=== PATIENT | female | born 1970 | race Caucasian/White ===

== ENCOUNTER 2017-04-07 10:24 | Emergency (ER) | payer OTHER ==
[~2017-04-07] VITALS: Ht 167.6 cm; Wt 86.2 kg
--- NOTE | 2017-04-07 11:10 | ED GENERAL ADULT ---
History of Present Illness General Chief Complaint: Animal/Insect Bite Stated Complaint: CAT BITES BILATERAL HANDS Source: patient Exam Limitations: no limitations Vital Signs & Intake/Output Vital Signs & Intake/Output Vital Signs Date Time Temp Pulse Resp B/P B/P Pulse O2 O2 Flow FiO2 Mean Ox Delivery Rate 04/07 1028 96.6 87 16 154/90 99 Room Air Allergies Coded Allergies: No Known Allergies (04/07/17) Reconcile Medications Amoxicillin/Potassium Clav (Augmentin 875-125 Tablet) 875 MG-125 MG TABLET 1 TAB PO BID IFN Calcium Carbonate/Vitamin D3 (Caltrate 600 + D Tablet) 600 MG-800 TABLET 1 TAB PO DAILY SUPPLEMENT (Reported) Cyanocobalamin (Vitamin B-12) (Cyanocobalamin Injection) 1,000 MCG/ML VIAL 1 ML IM Q30D VITAMIN SUPPORT (Reported) Ibuprofen 600 MG TABLET 1 TAB PO TID PRN PAIN with food Methimazole 5 MG TABLET 2 TAB PO BID THYROID (Reported) Multivitamin (Daily Multiple Vitamin) 1 EACH TABLET 1 TAB PO DAILY VITAMIN SUPPORT (Reported) Triage Note: 46 Y/O FEMALE C/O CAT BITES TO BILATERAL 5TH FINGERS AND R FOREARM; STATES HER CAT BIT HER LAST NIGHT. INDOOR CAT, UTD WITH ALL VACCINES. PT UNSURE OF HER TETANUS STATUS. TOOK TYLENOL THIS AM WITH LITTLE RELIEF. SWELLING NOTED AROUND BITES. Triage Nurses Notes Reviewed? yes Onset: Abrupt Duration: hour(s): Timing: recent history : No Patient currently breastfeeds: No HPI: 04/07/17 11:27 AM 46-year-old female presents to the emergency department complaining of bilateral pinky pain and swelling. The patient states that she was bitten by her cat who inadvertently went outside last night. The cat bit her in her left pinky finger and in her right pinky finger. She complains of pain and swelling to both digits and some decreased range of motion secondary to pain. The onset of the symptoms was abrupt, the duration has been approximately 12 hours, the severity is significant; as her symptoms required her to come to the emergency department for care. She denies fever or other complaints. She says that her cat has had its shots. It is an indoor cat. Past History Travel History Traveled to [place] past 21 day No Medical History Any Pertinent Medical History? 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 No Review of Systems Review of Systems Constitutional: Denies: fever. EENTM: Reports: no symptoms. Respiratory: Reports: no symptoms. Cardiovascular: Reports: no symptoms. GI: Reports: no symptoms. Genitourinary: Reports: no symptoms. Musculoskeletal: Reports: no symptoms. Skin: Reports: see HPI. Neurological/Psychological: Reports: no symptoms. Hematologic/Endocrine: Reports: bleeding. Immunologic/Allergic: Reports: no symptoms. Comments The patient has full range of motion to both pinkies. She does have a puncture wound and a linear abrasion to the palmar and dorsal aspects of both fingers Physical Exam Physical Exam General Appearance: well developed/nourished, alert, awake, anxious, mild distress Head: atraumatic, normal appearance Eyes: Bilateral: normal appearance, PERRL, EOMI. Ears, Nose, Throat: normal ENT inspection Neck: normal inspection Respiratory: no respiratory distress Cardiovascular: regular rate/rhythm Peripheral Pulses: 4+ radial (R), 4+ radial (L) Extremities: swelling, tenderness Neurologic/Psych: no motor/sensory deficits, awake, alert, oriented x 3 Skin: puncture wounds to both proximal 5th digits Comments: Core Measures ACS in differential dx? No CVA/TIA Diagnosis: No Severe Sepsis Present: No Septic Shock Present: No Progress Differential Diagnoses I considered the following diagnoses in my evaluation of the patient: [ Tenosynovitis, abscess, foreign body, fracture, wound infection] Plan of Care: Current Medications Sig/Kareen Start time Last Medication Dose Stop Time Status Admin Tetanus/Diphtheria 0.5 ML ONCE ONE 04/07 1045 CAN Toxoids Adsorbed 04/07 1200 (Decavac) Initial ED EKG: none Departure Departure Disposition: STILL A PATIENT Condition: Stable Clinical Impression Primary Impression: Cat bite of left hand including fingers with infection Referrals: DIANA NAJERA MD (PCP/Family) Departure Forms: Customer Survey General Discharge Information Prescriptions: Current Visit Scripts Ibuprofen 1 TAB PO TID PRN PAIN #30 TAB with food Amoxicillin/Potassium Clav (Augmentin 875-125 Tablet) 1 TAB PO BID #20 TAB Comments PATIENT: GODFREY WARD PRESENT AGE: 46 PATIENT ACCOUNT NO: [id number] : 72 LOCATION: [facility] ORDERING PHYSICIAN: PREM GARCIA DO SERVICE DATE: 04/07/17 EXAM TYPE: RAD - XRY-FINGERS, LEFT EXAMINATION: XR FINGER, LEFT CLINICAL INFORMATION: Cat bite of the fifth finger. Evaluate for foreign body or fracture. COMPARISON: None TECHNIQUE: Left fifth digit, 3 views FINDINGS: Bones have normal alignment throughout the examined hand and wrist. Mild soft tissue swelling over the proximal phalanx of the fifth digit without radiopaque foreign body or soft tissue emphysema. The interphalangeal joint spaces are normal. No evidence of acute fracture or malalignment. IMPRESSION: Mild soft tissue swelling of the fifth digit. Otherwise, unremarkable exam. DICTATED BY: DELIO BOOKER MD DATE/TIME DICTATED:04/07/171255 CHIEF WHEELAGE CLERK:LORI DATE/TIME TRANSCRIBED:04/07/171255 CONFIDENTIAL, DO NOT COPY WITHOUT APPROPRIATE AUTHORIZATION. <Electronically signed in Other Vendor System> SIGNED BY: DELIO BOOKER MD 04/07/17 1300 Critical Care Note Critical Care Note Critical Care Time: non-applicable
[2017-04-07] MEDS ORDERED: METHIMAZOLE5 M1 PO (11:25)
[2017-04-07] MEDS ORDERED: CYANOCOBAL1000 MCG/2 IM (11:25)
[2017-04-07] MEDS ORDERED: CALTRATE 600 +1 EACH PO (11:26)
[2017-04-07] MEDS ORDERED: DAILY MULTIPLE1 EACH PO (11:26)
--- NOTE | 2017-04-07 13:00 | RADIOLOGY REPORT ---
EXAMINATION: XR FINGER, LEFT CLINICAL INFORMATION: Cat bite of the fifth finger. Evaluate for foreign body or fracture. COMPARISON: None TECHNIQUE: Left fifth digit, 3 views FINDINGS: Bones have normal alignment throughout the examined hand and wrist. Mild soft tissue swelling over the proximal phalanx of the fifth digit without radiopaque foreign body or soft tissue emphysema. The interphalangeal joint spaces are normal. No evidence of acute fracture or malalignment. IMPRESSION: Mild soft tissue swelling of the fifth digit. Otherwise, unremarkable exam.
[2017-04-07] MEDS ORDERED: IBUPROFEN600 M1 PO (13:28)
[2017-04-07] MEDS ORDERED: AUGMENTIN 875-1 EACH PO (13:28)
[2017-04-07 13:51] VITALS: BP 154/84
== END 2017-04-07 13:52 ==
LOC: ERH 10:24
DX: S61.256A Open bite of right little finger without damage to nail, initial encounter (principal); S61.257A Open bite of left little finger without damage to nail, initial encounter; L03.011 Cellulitis of right finger; L03.012 Cellulitis of left finger; W55.01XA Bitten by cat, initial encounter; Y93.9 Activity, unspecified; Y92.9 Unspecified place or not applicable
CPT/HCPCS: 73140-LT; 90714; 96374

== ENCOUNTER 2017-04-08 09:56 | Emergency (ER) | payer OTHER ==
[~2017-04-08] VITALS: Ht 167.6 cm; Wt 86.2 kg
[~2017-04-08 09:56] MED LIST: AUGMENTIN 875-1 EACH PO; CALTRATE 600 +1 EACH PO; CYANOCOBAL1000 MCG/2 IM; DAILY MULTIPLE1 EACH PO; IBUPROFEN600 M1 PO; METHIMAZOLE5 M1 PO
[2017-04-08 10:07] VITALS: BP 135/89
--- NOTE | 2017-04-08 12:07 | ED ANIMAL BITE/WOUND CHECK ---
History of Present Illness General Chief Complaint: Suture Removal/Wound Recheck Stated Complaint: WOUND CHECK Source: patient Exam Limitations: no limitations Vital Signs & Intake/Output Vital Signs & Intake/Output Vital Signs Date Time Temp Pulse Resp B/P B/P Pulse O2 O2 Flow FiO2 Mean Ox Delivery Rate 04/08 1209 Room Air 04/08 1007 97.6 91 18 135/89 98 Room Air Allergies Coded Allergies: No Known Allergies (04/07/17) Reconcile Medications Amoxicillin/Potassium Clav (Augmentin 875-125 Tablet) 875 MG-125 MG TABLET 1 TAB PO BID IFN Calcium Carbonate/Vitamin D3 (Caltrate 600 + D Tablet) 600 MG-800 TABLET 1 TAB PO DAILY SUPPLEMENT (Reported) Cyanocobalamin (Vitamin B-12) (Cyanocobalamin Injection) 1,000 MCG/ML VIAL 1 ML IM Q30D VITAMIN SUPPORT (Reported) Ibuprofen 600 MG TABLET 1 TAB PO TID PRN PAIN with food Methimazole 5 MG TABLET 2 TAB PO BID THYROID (Reported) Multivitamin (Daily Multiple Vitamin) 1 EACH TABLET 1 TAB PO DAILY VITAMIN SUPPORT (Reported) Triage Note: 46 YO FEMALE TO ER FOR WOUND CHECK OF CAT BITES TO BILATERAL HANDS. PT STATES THE BITE ON THE R PINKY FINGER APPEARS BETTER. REDNESS NOTED ON TOP OF L HAND THAT PER PT "WAS NOT THERE THE OTHER DAY" STATES BITE TO FINGER ON L HAND IS NOW OOZING. STATES SHE RECIEVED AN IV WITH ANTIIBOTICS THE OTHER DAY AND WAS SENT HOME ON AMOX. AFEBRILE Triage Nurses Notes Reviewed? yes Onset: Abrupt Duration: day(s): (2) Timing: no prior history Injury Environment: home Is Injury an Animal Bite? Yes Animal Type: cat Context of Animal Attack: unprovoked attack Appearance of Animal: appeared well Animal Immunization Status: up to date Observation/Capture: animal known/obs x10 days Severity of Attack: bitten Severity: moderate : No Patient currently breastfeeds: No HPI: Patient is a 46-year-old female presenting to the emergency department with chief complaint BITE to bilateral hands. She reports that she was seen and evaluated here yesterday for the same symptoms and was treated with IV antibiotics. Currently on by mouth antibiotics. Patient denying any fevers chills nausea vomiting chest pain and shortness of breath. She reports that symptoms have been improving. She is able to open and close her fist without difficulties. Denies any increased redness or swelling. No numbness or tingling. Past History Travel History Traveled to [place] past 21 day No Medical History Any Pertinent Medical History? 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 No Review of Systems Review of Systems Constitutional: Reports: no symptoms. Comments Review of systems: See HPI, All other systems negative. Constitutional, no chills fever or weight loss HEENT: No visual changes no sore throat no congestion Cardiovascular: No chest pain Skin, no jaundice no rashes Respiratory: No dyspnea cough sputum GI: No nausea no vomiting Muscle skeletal: no back pain, no neck pain, Neurologic: No numbness Immunology: No splenectomy or history of AIDS Physical Exam Physical Exam General Appearance: well developed/nourished, no apparent distress, alert, awake , comfortable Comments: Well-developed well-nourished person in no acute distress HEENT: . Nose is atraumatic. Neck: Normal flexion Back: Nontender Cardiovascular: normal JVP, radial pulses are 2+ bilaterally. Respiratory: No respiratory distress. Extremity: Bilateral edema, mild appreciated over the thumbs bilaterally. Small amount of erythema surrounding this area. Capillary refill is intact in upper extremities bilaterally. Full range of motion of upper extremities without difficulty or pain. Skin: 3-4 puncture wounds noted on both sides of the thumb bilaterally. Appeared to be healing well. Scabbing. Minimal surrounding erythema. Neuro: Alert oriented x3, motor sensory normal in the upper extremities. Psych: Mood and affect is normal, memory and judgment is normal. Progress Differential Diagnosis: cellulitis, WOUND CHECK, ABSCESS Plan of Care: Patient will continue oral antibiotics. Patient is afebrile this time in no acute distress and symptoms seem to be improving. She'll return for worsening symptoms or concerns. Departure Departure Time of Disposition: 1206 Disposition: HOME OR SELF CARE Condition: Stable Clinical Impression Primary Impression: Cat bite Qualifiers: Encounter type: initial encounter Qualified Code: W55.01XA - Bitten by cat, initial encounter Referrals: DIANA NAJERA MD (PCP/Family) Additional Instructions: Follow-up with primary care physician, make appointment. Keep area clean. Continue antibiotics as previous except return for worsening symptoms or concerns. Departure Forms: Customer Survey General Discharge Information
== END 2017-04-08 12:10 ==
LOC: ERH 09:56
DX: S61.452D Open bite of left hand, subsequent encounter (principal)
CPT/HCPCS: 99281